=== PATIENT | female | born 1965 | race Caucasian/White ===

== ENCOUNTER 2023-04-16 17:47 | Emergency (ER) | payer MEDICAID, OTHER ==
[~2023-04-16] VITALS: Ht 157.5 cm; Wt 61.2 kg
[~2023-04-16 17:47] MED LIST: FERR-18 PO; GLIP10TA3 PO; METF-1274 PO; VITC500 PO
[2023-04-16 17:53] VITALS: BP 136/80; PULSE 90; RESP 20; TEMP 97.1; O2SAT 98
[2023-04-16] MEDS ORDERED: KETOROLAC 30 MG/ML VIAL IM ONE (18:35)
[2023-04-16] MEDS ORDERED: NAPR-1704 PO (19:46)
== END 2023-04-16 20:24 | disposition home or self-care (01) ==
LOC: MED 17:47
DX: S82.035A Nondisplaced transverse fracture of left patella, initial encounter for closed fracture (principal); M54.50 Low back pain, unspecified; I25.10 Atherosclerotic heart disease of native coronary artery without angina pectoris; E11.9 Type 2 diabetes mellitus without complications; Z79.899 Other long term (current) drug therapy; Z79.4 Long term (current) use of insulin; X58.XXXA Exposure to other specified factors, initial encounter; Y93.89 Activity, other specified; Y92.89 Other specified places as the place of occurrence of the external cause; Y99.8 Other external cause status
CPT/HCPCS: 29505; 72220; 73562; 81025; 96372; 99284; J1885